=== PATIENT | male | born 1935 | race Caucasian/White ===

== ENCOUNTER 2016-05-11 19:36 | Inpatient (IN) | payer OTHER ==
[2016-05-11] MEDS ORDERED: SODIUM CHLORIDE 0.9% 10 ML FLUSH FLUSH PRN (19:39)
[2016-05-11] MEDS ORDERED: NS 500 ML IV ONE (19:40)
--- NOTE | 2016-05-11 19:42 | EDPRACDOC ---
- General Information Information Source: Work Station Support Specialist Mode of Arrival: Ambulance - History of Present Illness Onset: 2 days HPI: EMS reports fever, yellow productive cough, diarrhea x 2 days. Pt is non verbal with hx dementia. Symptoms: Reports: Cough, Fever, Other (diarrhea) <Kristi Peck - Last Filed: 05/11/16 22:03> <Angel LuisJames - Last Filed: 05/11/16 22:05> - General Information Stated Complaint: FEVER Time Seen by Provider: 05/11/16 19:37 Home Medications: Home Medications Aspirin [Aspirin EC] 81 mg PO HS 05/14/14 Carbidopa/Levodopa [Sinemet 25/100] 1 tab PO .5XDAILY 05/14/14 Cholecalciferol (Vitamin D3) [Vitamin D3 (cholecalciferol)] 2,000 unit PO BID Donepezil HCl [Aricept] 10 mg PO QAM 05/14/14 Lactobac Cmb #3/Fos/Pantethine [Probiotic & Acidophilus Cap] 1 cap PO QAM Levothyroxine [Synthroid, Levoxyl] 75 mcg PO QAM 05/14/14 Losartan Potassium [Cozaar] 25 mg PO QAM 05/14/14 Sertraline HCl [Zoloft] 50 mg PO QAM 05/14/14 Travoprost (Benzalkonium) [Travatan 0.004% Eye Drop] 1 drop OU 05/14/14 Ascorbic Acid [C-1000] 1,000 mg PO BID 10/04/15 Brimonidine 0.2%/Timolol 0.5% [Combigan] 1 drops OU BID 10/04/15 Docusate Sodium [Stool Softener] 100 mg PO HS 10/04/15 Memantine HCl [Namenda] 10 mg PO BID 10/04/15 Pioglitazone HCl [Actos] 45 mg PO QAM 10/04/15 Calcium Carbonate [Calcium] 1,200 mg PO DAILY 05/11/16 Fluticasone Propionate [Flonase] 1 - 2 spray AMELIA DAILY 05/11/16 Glimepiride [Amaryl] 2 mg PO DAILY 05/11/16 Magnesium 600 mg PO DAILY 05/11/16 Mineral Oil/Petrolatum,White [Refresh Lacri-Lube Ointment] 1 applic OU BID 05/11 Pastor/Polymyx B Sulf/Dexameth [Weedxr-Amxtu-Rdvvdrn Eye Ointm] 1 applic OU TID 02/15 Allergies/Adverse Reactions: Allergies Allergy/AdvReac Type Severity Reaction Status Date / Time ANESTHETICS Allergy See Uncoded 10/04/15 18:06 Comments ED Past Medical History - History Reviewed Yes Nurses notes reviewed and agree except as marked - Patient Medical History Neurological History: Reports: Cerebrovascular Accident (TIA), DementiaComment Only: Parkinson's (LATER DIAGNOSED WITH LEWY BODY DISEASE &) Cardiac History: Reports: Hypertension, Hypercholesterolemia, Pacemaker Respiratory History: Reports: Pulmonary Embolism GI/ History: Reports: Gastroesophageal Reflux Psychological History: Reports: Anxiety. Denies: Substance Use Disorder Systemic History: Reports: Cancer (Basal cell cancer removed), Diabetes, Hypothyroidism Surgical History: Reports: Other (Multiple surgeries including bilateral rotator cuff.) - Family Medical History Reports: Hypertension, Diabetes (Mother: DM), Cancer (SKIN), Stroke, Cardiac Disorders (Father: at 65 yo of [place]) - Social Medical History Smoking Status: Never smoker Social History: Denies: Substance Use Disorder ETOH: None Substance Abuse: None <Kristi Peck - Last Filed: 05/11/16 22:03> EDM Review of Systems - Review of Systems ROS Unobtainable: Yes Hx Limited due to age/level of understanding of patient Constitutional: Fever Nose: No Symptoms Reported. negative: Congestion, Bleeding, Discharge, Injection, Swelling, Deformity, Ecchymosis, Tender, Abrasion, Laceration Respiratory: Cough Gastrointestinal: Diarrhea Integumentary: No Symptoms Reported. negative: Itching, Rash, Bruising, Wound Allergic/Immunologic: No Symptoms Reported. negative: Hives, Itching Hematologic: No Symptoms Reported. negative: Lymphadenopathy, Easy Bruising, Easy Bleeding <Kristi Peck - Last Filed: 05/11/16 22:03> - Physical Exam Constitutional: Alert Oriented to: Unable to Test Last recorded Vital Signs: Oxygen Pulse Oxygen Saturation O2 Device Oxygen Flow Rate Fraction of Inspired Oxygen ( FIO2) - HEENT Head: Normal ( normocephalic) Eye Exam: Normal (PERRL, EOMI, Sclera white) Neck: Normal (FROM, trachea at midline) - Respiratory/Cardiovascular Respiratory: Rales Cardiovascular: Normal (RRR without murmur, gallop or rub) - GI Auscultation: Normal (NABS) Palpation: Normal (Soft,No rebound or guarding, non distended) Tenderness: Non tender - Musculoskeletal Back: Normal (Non-Tender) Extremities: Normal (Normal tone, Pulses 2+ No cyanosis or edema, FROM) - Integumentary Skin: Normal, Warm, Dry Lymphatics: Normal (no adenopathy) - Neurologic Memory Impaired: Unable to Test Motor Function: Unable to Test <Kristi Peck - Last Filed: 05/11/16 22:03> - Physical Exam Last recorded Vital Signs: Last Vital Signs Temp 101.8 F H 05/11/16 19:37 Pulse 78 05/11/16 21:50 Resp 18 05/11/16 21:50 BP 118/60 05/11/16 21:50 Pulse Ox 92 05/11/16 21:50 Oxygen Pulse Oxygen Saturation 92 O2 Device Room Air Oxygen Flow Rate Fraction of Inspired Oxygen ( FIO2) <James Hein - Last Filed: 05/11/16 22:05> - Differential Diagnosis Bronchitis, Influenza, Pneumonia, Sepsis, UTI, Viral Syndrome - Results 05/11/16 20:28 05/11/16 20:28 - EKG EKG #1 EKG Time: 19:47 Rate: bpm: 72 [place]: Normal Rhythm: NSR Block: None ST: Nonsp Comparison: 05/14/14 - Diagnostic Imaging Chest Image interpreted by: Radiologist IMPRESSION: 1. Suspect left lower lobe pneumonia. <Kristi Peck - Last Filed: 05/11/16 22:03> - Results 05/11/16 20:28 05/11/16 20:28 WBC 12.7 xk/uL (3.8-10.8) H 05/11/16 20:28 RBC 3.34 xM/uL (4.70-6.10) L 05/11/16 20:28 Hgb 10.9 g/dL (14.0-18.0) L 05/11/16 20:28 Hct 32.5 % (42-52) L 05/11/16 20:28 MCV 97 fL (80-94) H 05/11/16 20:28 MCH 32.6 pg (27-32) H 05/11/16 20:28 MCHC 33.5 g/dl (33-36) 05/11/16 20: RDW 12.9 % (11.5-14.5) 05/11/16 20: Plt Count 301 xk/uL (130-400) 05/11/16 20: MPV 9.1 fL (7.4-10.4) 05/11/16 20: Neut % (Auto) 79.0 % (45-76) H 05/11/16 20: Lymph % (Auto) 11.6 % (17-44) L 05/11/16 20: Morrill % (Auto) 8.7 % (3-10) 05/11/16: Eos % (Auto) 0.2 % (0-5) 05/11/16: Baso % (Auto) 0.5 % (0-2) 05/11/16 20: Absolute Neuts (auto) 10.03 xk/uL (1.7-8.2) H 05/11/16 20: Absolute Lymphs (auto) 1.40 xk/uL (0.65-4.75) 05/11/16 20: PT 10.6 SEC (9.2-11.2) 05/11/16: INR 1.0 05/11/16 20: APTT 25.3 SEC (22-35) 05/11/16 20: Puncture Site Left radial 05/11/16: pH 7.330 pH UNITS (7.35-7.45) L 05/11/16: pCO2 48.0 mmHg (35-45) H 05/11/16: pO2 40.0 mmHg (80-100) L* 05/11/16: HCO3 25.3 MMOL/L (22-26) 05/11/16: Total CO2 26.8 MMOL/L (23-27) 05/11/16: Base Excess -1.1 (+/- 2) 05/11/16: FiO2 % .21 05/11/16 21:17 Tidal Volume ML 05/11/16 21: Specimen Drawn By Palro 05/11/16 21: Sodium 135 mEq/L (137-146) L 05/11/16 20: Potassium 4.1 mEq/L (3.5-5.1) 05/11/16 20: Chloride 99 mEq/L (98-107) 05/11/16 20: Carbon Dioxide 27 mMOL/L (22-33) 05/11/16 20: Anion Gap 13 mEq/L (8-16) 05/11/16 20: BUN 24 MG/DL (9-20) H 05/11/16 20: Creatinine 0.70 MG/DL (0.66-1.25) 05/11/16 20: Estimated GFR (MDRD) > 60 mL/min (>=60) 05/11/16: Glucose 157 MG/DL (70-99) H 05/11/16: Calculated Osmolality 267 MOs/Kg (270-290) L 05/11/16: Lactic Acid 1.2 mEq/L (0.7-2.1) 05/11/16: Calcium 9.0 MG/DL (8.4-10.2) 05/11/16: Corrected Calcium 9.3 MG/DL (8.4-10.2) 05/11/16 20: Total Bilirubin 0.5 MG/DL (0.2-1.3) 05/11/16 20: AST 31 IU/L (17-59) 05/11/16 20: ALT 21 IU/L (21-72) 05/11/16 20: Alkaline Phosphatase 73 IU/L (50-160) 05/11/16: Creatine Kinase 43 IU/L (55-170) L 05/11/16 20: Troponin I < 0.01 ng/mL (<.04) 05/11/16 20: Fhw-H-Vquenrunyfj Pept 1680 pg/mL (0-1800) 05/11/16 20: Total Protein 7.0 G/DL (6.3-8.2) 05/11/16 20: Albumin 3.7 G/DL (3.5-5.0) 05/11/16 20: Urine Color Yellow 05/11/16 21:22 Urine Clarity Sl cldy 05/11/16 21: Urine pH 5.0 (5.0-8.0) 05/11/16 21: Ur Specific [place] 1.030 (1.003-1.035) 05/11/16 21:22 Urine Protein 1+ (NEG/TRACE) H 05/11/16 21:22 Urine Glucose (UA) Neg (NEGATIVE) 05/11/16 21:22 Urine Ketones 1+ (NEGATIVE) H 05/11/16 21:22 Urine Occult Blood Neg (NEG/TRACE) 05/11/16 21:22 Urine Nitrite Neg (NEGATIVE) 05/11/16 21: Urine Bilirubin Neg (NEGATIVE) 05/11/16 21:22 Urine Urobilinogen <2.0 MG/DL (0-1) 05/11/16 21: Ur Leukocyte Esterase Neg (NEGATIVE) 05/11/16 21: Urine RBC 5-10 (0-2) H 05/11/16 21: Urine WBC 2-5 (0-2) H 05/11/16 21:22 Ur Epithelial Cells 2+ 05/11/16 21: Urine Bacteria Few (NEG/FEW) 05/11/16 21: Urine Mucus Mod (NEG/OCC) H 05/11/16 21: Microbiology 05/11/16 20:44 Influenza Type A Antigen Screen - Final Nasal Washing/Aspirate Or Swab NEGATIVE Please note: A NEGATIVE result does not exclude an influenza virus infection. It is a presumptive result and, if required, confirmation should be done using either a virus culture or an FDA-cleared influenza A&B molecular assay. ("NORMAL" value = "NEGATIVE".) Influenza Type B Antigen Screen - Final NEGATIVE Please note: A NEGATIVE result does not exclude an influenza virus infection. It is a presumptive result and, if required, confirmation should be done using either a virus culture or an FDA-cleared influenza A&B molecular assay. ("NORMAL" value = "NEGATIVE".) Lab Results 05/11/16 05/11/16 05/11/16 21:22 21:17 20:28 WBC RBC Hgb Hct MCV MCH MCHC RDW Plt Count MPV Neut % (Auto) Lymph % (Auto) [place] % (Auto) Eos % (Auto) Baso % (Auto) Absolute Neuts (auto) Absolute Lymphs (auto) PT 10.6 INR 1.0 APTT 25.3 Puncture Site Left radial pH 7.330 L pCO2 48.0 H pO2 40.0 L* HCO3 25.3 Total CO2 26.8 Base Excess -1.1 FiO2 % .21 Tidal Volume Specimen Drawn By Palro Sodium Potassium Chloride Carbon Dioxide Anion Gap BUN Creatinine Estimated GFR (MDRD) Glucose Calculated Osmolality Lactic Acid Calcium Corrected Calcium Total Bilirubin AST ALT Alkaline Phosphatase Creatine Kinase Troponin I Dvv-A-Nuoohgafwyj Pept Total Protein Albumin Urine Color Yellow Urine Clarity Sl cldy Urine pH 5.0 Ur Specific [place] 1.030 Urine Protein 1+ H Urine Glucose (UA) Neg Urine Ketones 1+ H Urine Occult Blood Neg Urine Nitrite Neg Urine Bilirubin Neg Urine Urobilinogen <2.0 Ur Leukocyte Esterase Neg Urine RBC 5-10 H Urine WBC 2-5 H Ur Epithelial Cells 2+ Urine Bacteria Few Urine Mucus Mod H 05/11/16 05/11/16 05/11/16 20:28 20:28 20:28 WBC 12.7 H RBC 3.34 L Hgb 10.9 L Hct 32.5 L MCV 97 H MCH 32.6 H MCHC 33.5 RDW 12.9 Plt Count 301 MPV 9.1 Neut % (Auto) 79.0 H Lymph % (Auto) 11.6 L [place] % (Auto) 8.7 Eos % (Auto) 0.2 Baso % (Auto) 0.5 Absolute Neuts (auto) 10.03 H Absolute Lymphs (auto) 1.40 PT INR APTT Puncture Site pH pCO2 pO2 HCO3 Total CO2 Base Excess FiO2 % Tidal Volume Specimen Drawn By Sodium 135 L Potassium 4.1 Chloride 99 Carbon Dioxide 27 Anion Gap 13 BUN 24 H Creatinine 0.70 Estimated GFR (MDRD) > 60 Glucose 157 H Calculated Osmolality 267 L Lactic Acid 1.2 Calcium 9.0 Corrected Calcium 9.3 Total Bilirubin 0.5 AST 31 ALT 21 Alkaline Phosphatase 73 Creatine Kinase 43 L Troponin I < 0.01 Fhm-S-Qrvfbhluehi Pept 1680 Total Protein 7.0 Albumin 3.7 Urine Color Urine Clarity Urine pH Ur Specific [place] Urine Protein Urine Glucose (UA) Urine Ketones Urine Occult Blood Urine Nitrite Urine Bilirubin Urine Urobilinogen Ur Leukocyte Esterase Urine RBC Urine WBC Ur Epithelial Cells Urine Bacteria Urine Mucus <James Hein - Last Filed: 05/11/16 22:05> - Departure Disposition: Admit IP To This Hospital Education/Counseling Given To: Family Member Education/Counseling Given Regarding: Diagnosis, Treatment <Paula Peckyusef Staton - Last Filed: 05/11/16 22:03> - Departure Yes I personally saw and evaluated the patient. Decision to Admit Time: 22:05 Decision to admit date: 05/11/16 Decision to admit: from ED - Physician Consulted Hospitalist Time Called: 22:05 Provider Called: Tacho Reis Time [employer] Returned Call: 22:05 <James Hein - Last Filed: 05/11/16 22:05> - Departure Condition: Stable Final Diagnosis: Hypoxia LLL pneumonia Qualifiers: Pneumonia type: due to unspecified organism Qualified Code(s): J18.1 - Lobar pneumonia, unspecified organism Referrals: David Medina II, MD [Primary Care Provider] - One Week
[2016-05-11] MEDS ORDERED: ACETAMINOPHEN 325 MG/TAB TABLET PO ONE (19:47)
--- NOTE | 2016-05-11 20:26 | DIRPT ---
CLINICAL DATA: Sepsis. EXAM: PORTABLE CHEST 1 VIEW COMPARISON: 02/11/2015 FINDINGS: There is a left chest wall pacer device with lead in the right atrial appendage and right ventricle. Normal heart size. There is aortic atherosclerosis identified. There is a airspace opacity within the left midlung and left base worrisome for pneumonia. IMPRESSION: 1. Suspect left lower lobe pneumonia. Electronically Signed By: Surekha Ruiz M.D. On: 05/11/2016 20:24
[2016-05-11 20:48] LABS: AUTOMATED BASOPHIL 0.5 % (0-2); AUTOMATED EOSINOPHIL 0.2 % (0-5); AUTOMATED LYMPH 11.6 % (17-44); AUTOMATED MONOCYTE 8.7 % (3-10); MPV 9.1 fL (7.4-10.4)
[2016-05-11 20:56] LABS: PARTIAL THROMB. TIME 25.3 SEC (22-35)
[2016-05-11 21:08] LABS: BLOOD UREA NITROGEN 24 MG/DL (9-20); CALC CORRECTED 9.3 MG/DL (8.4-10.2); CALCULATED OSMOLALITY 267 MOs/Kg (270-290); CHLORIDE 99 mEq/L (98-107); CPK TOTAL WITH POSSIBLE MB 43 IU/L (55-170); GLUCOSE 157 MG/DL (70-99); SODIUM LEVEL 135 mEq/L (137-146)
[2016-05-11 21:49] LABS: LEUKOCYTES/URINE NEG (NEGATIVE); NITRITE/URINE NEG (NEGATIVE); URINE OCCULT BLOOD NEG (NEG/TRACE)
[2016-05-11 21:59] LABS: ALLEN'S TEST PASS
[2016-05-11] MEDS ORDERED: CEFTRIAXONE 1 GM in D5W 100 ML IV ONE (21:59)
[2016-05-11] MEDS ORDERED: AZITHROMYCIN 250 MG TAB PO ONE (21:59)
[2016-05-11 22:00] LABS: ABG Draw Site Left Radial
[2016-05-11 22:01] LABS: BEb -1.1 (+/- 2); TCO2 26.8 MMOL/L (23-27)
[2016-05-11] MEDS ORDERED: AZITHROMYCIN 500 MG in D5W 250 ML IV ONE (22:03)
--- NOTE | 2016-05-11 22:24 | HISTPHYS ---
- Chief Complaint not feeling well, shortness of breath - History of Present Illness PRIMARY CARE PROVIDER: Adan HPI: The patient is an 80 yo man who has Lewy Body dementia who usually has stiffness rather than tremors, who started to have some shaking yesterday, and presents today with shortness of breath. The patient is currently not speaking and cannot give any history, so his provides the history. Patient is coughing frequently with eating. Has trouble swallowing at baseline. This morning was unable to get a liquid drink down and was coughing it up. Starting last night he was chatty (very unlike him) but saying bizarre things. Hallucination with seeing a goat at the window. He became progressively more weak today, and can barely walk now. He couldn't make his feet move. Coughing more. Couldn't feed himself. Fever 101.6 this evening. Did have a fever low grade of 100 about 2 nights ago. Onset: First symptoms a few nights ago. Much worse today. Duration: intermittent at first, now constant. Location: generalized. Character: can't get a good breath. Alleviated by: Nothing. Exacerbated by: Nothing. Associated Symptoms: Lost 10 lbs in last few months. Hallucinations. Worsening constipation. Passed out and started shaking all over about 4 days ago but recovered to his usual state. Treatments: none at home except usual medications. Starting to have hallucinations with 5 doses of sinemet per day, so decreased to 4 times per day. Recently decreased to 3 times per day. - Medical History Cardiac History: Reports: Hypertension (usually not hypertensive), Hypercholesterolemia, Pacemaker Respiratory History: Reports: Pulmonary Embolism GI/ History: Reports: Gastroesophageal Reflux Systemic History: Reports: Cancer (Basal cell cancer removed), Diabetes (Type 2 , on insulin), Hypothyroidism, Other (History of hyponatremia.) Neurological History: Reports: Cerebrovascular Accident (TIA), Dementia (LEWY BODY DEMENTIA)Comment Only: Parkinson's (LATER DIAGNOSED WITH LEWY BODY DISEASE) Psychological History: Reports: Anxiety. Denies: Substance Use Disorder - Surgical History Reports: Other (Multiple surgeries including bilateral rotator cuff.) - Medictions/Allergies Allergies ANESTHETICS Allergy (Uncoded 10/04/15 18:06) See Comments PT MED LIST STATES PT CODED. Current Medication List: Reviewed Home Medications Aspirin [Aspirin EC] 81 mg PO HS 05/14/14 Carbidopa/Levodopa [Sinemet 25/100] 1 tab PO .5XDAILY 05/14/14 Cholecalciferol (Vitamin D3) [Vitamin D3 (cholecalciferol)] 2,000 unit PO BID Donepezil HCl [Aricept] 10 mg PO QAM 05/14/14 Lactobac Cmb #3/Fos/Pantethine [Probiotic & Acidophilus Cap] 1 cap PO QAM Levothyroxine [Synthroid, Levoxyl] 75 mcg PO QAM 05/14/14 Losartan Potassium [Cozaar] 25 mg PO QAM 05/14/14 Sertraline HCl [Zoloft] 50 mg PO QAM 05/14/14 Travoprost (Benzalkonium) [Travatan 0.004% Eye Drop] 1 drop OU HS 05/14/14 Ascorbic Acid [C-1000] 1,000 mg PO BID 10/04/15 Brimonidine 0.2%/Timolol 0.5% [Combigan] 1 drops OU BID 10/04/15 Docusate Sodium [Stool Softener] 100 mg PO HS 10/04/15 Memantine HCl [Namenda] 10 mg PO BID 10/04/15 Pioglitazone HCl [Actos] 45 mg PO QAM 10/04/15 Calcium Carbonate [Calcium] 1,200 mg PO DAILY 05/11/16 Fluticasone Propionate [Flonase] 1 - 2 spray AMELIA DAILY 05/11/16 Glimepiride [Amaryl] 2 mg PO DAILY 05/11/16 Magnesium 600 mg PO DAILY 05/11/16 Mineral Oil/Petrolatum,White [Refresh Lacri-Lube Ointment] 1 applic OU BID 05/11 Pastor/Polymyx B Sulf/Dexameth [Okeoxl-Rcskm-Ktgxaou Eye Ointm] 1 applic OU TID 02/15 - Family History Reports: Hypertension, Diabetes (Mother and 5 siblings: DM), Cancer (SKIN), Stroke (Mother), Cardiac Disorders (Father: at 65 yo of [place]. Mother: [place] - Social History Lives: with Spouse Smoking Status: Never smoker Social History: Denies: Alcohol Use, Substance Use Disorder Recently moved to the area from [facility]. - Review of Systems Yes Review of systems cannot be obtained due to the patient's medical condition - Physical Exam Vital Signs: Initial Vitals Temperature 101.8 F H 05/11/16 19:37 Pulse Rate 75 05/11/16 19:37 Respiratory Rate 18 05/11/16 19:37 Blood Pressure 159/58 L 05/11/16 19:37 Pulse Oxygen Saturation 94 05/11/16 19:37 Vital Signs - 24 hr 05/11/16 05/11/16 05/11/16 19:37 21:50 22:32 Temperature 101.8 F H Pulse Rate 75 78 88 Respiratory 18 18 Rate Blood Pressure 159/58 L 118/60 132/83 Pulse Oxygen 94 92 98 Saturation 05/11/16 05/11/16 23:01 23:32 Temperature 98.3 F 97.8 F Pulse Rate 99 121 H Respiratory 24 22 Rate Blood Pressure 176/96 103/71 Pulse Oxygen 100 99 Saturation Weight: 57.8 kg Height: 5 feet 8 inches BMI: 19.4 - Other Exam Other Exam Findings: GENERAL: Ill-appearing, thin, in acute distress. HEENT: Normocephalic, atraumatic; pupils equal and round. Nares patent, without discharge or bleeding. No oropharyngeal lesions or erythema. Mucous membranes are dry. NECK: is supple, no masses, trachea midline. RESPIRATORY: Clear to auscultation bilaterally. Chest wall movements are symmetric. Tachypnea and intermittent use of accessory muscles to breathe. Rhonchi. No rales. CARDIOVASCULAR: Normal S1, S2. Murmur 2/6 systolic. No rubs, or gallops. PMI non -displaced. Carotids: no carotid bruits. Mild tachycardia. DP pulses 2+ bilaterally. GI: soft, nontender, non-distended, normal active bowel sounds. No hepatosplenomegaly. INTEGUMENT: Clean, dry, and intact. No rashes. MUSCULOSKELETAL: No cyanosis. No clubbing. Edema: none bilaterally. NEUROLOGICAL: Cranial nerves 2-12 grossly intact, as best can be determined in this patient who is not following commands. Reflexes: 2+ bilaterally. Babinski: toes downgoing bilaterally. Further neurologic exam could not be performed due to the medical condition of the patient. PSYCHIATRIC: Not oriented. Flat affect. LYMPHATIC: No cervical lymphadenopathy. No supraclavicular lymphadenopathy. - Lab Results Laboratory Results - last 24 hr 05/11/16 05/11/16 05/11/16 20:28 20:28 20:28 WBC 12.7 H RBC 3.34 L Hgb 10.9 L Hct 32.5 L MCV 97 H MCH 32.6 H MCHC 33.5 RDW 12.9 Plt Count 301 MPV 9.1 Neut % (Auto) 79.0 H Lymph % (Auto) 11.6 L [place] % (Auto) 8.7 Eos % (Auto) 0.2 Baso % (Auto) 0.5 Absolute Neuts (auto) 10.03 H Absolute Lymphs (auto) 1.40 PT INR APTT Puncture Site pH pCO2 pO2 HCO3 Total CO2 Base Excess FiO2 % Tidal Volume Specimen Drawn By Sodium 135 L Potassium 4.1 Chloride 99 Carbon Dioxide 27 Anion Gap 13 BUN 24 H Creatinine 0.70 Estimated GFR (MDRD) > 60 Glucose 157 H Calculated Osmolality 267 L Lactic Acid 1.2 Calcium 9.0 Corrected Calcium 9.3 Total Bilirubin 0.5 AST 31 ALT 21 Alkaline Phosphatase 73 Creatine Kinase 43 L Troponin I < 0.01 Hcy-Q-Vmcmceziamw Pept 1680 Total Protein 7.0 Albumin 3.7 Urine Color Urine Clarity Urine pH Ur Specific [place] Urine Protein Urine Glucose (UA) Urine Ketones Urine Occult Blood Urine Nitrite Urine Bilirubin Urine Urobilinogen Ur Leukocyte Esterase Urine RBC Urine WBC Ur Epithelial Cells Urine Bacteria Urine Mucus 05/11/16 05/11/16 05/11/16 20:28 21:17 21:22 WBC RBC Hgb Hct MCV MCH MCHC RDW Plt Count MPV Neut % (Auto) Lymph % (Auto) [place] % (Auto) Eos % (Auto) Baso % (Auto) Absolute Neuts (auto) Absolute Lymphs (auto) PT 10.6 INR 1.0 APTT 25.3 Puncture Site Left radial pH 7.330 L pCO2 48.0 H pO2 40.0 L* HCO3 25.3 Total CO2 26.8 Base Excess -1.1 FiO2 % .21 Tidal Volume Specimen Drawn By Palro Sodium Potassium Chloride Carbon Dioxide Anion Gap BUN Creatinine Estimated GFR (MDRD) Glucose Calculated Osmolality Lactic Acid Calcium Corrected Calcium Total Bilirubin AST ALT Alkaline Phosphatase Creatine Kinase Troponin I Yfa-N-Yellxylkkhw Pept Total Protein Albumin Urine Color Yellow Urine Clarity Sl cldy Urine pH 5.0 Ur Specific [place] 1.030 Urine Protein 1+ H Urine Glucose (UA) Neg Urine Ketones 1+ H Urine Occult Blood Neg Urine Nitrite Neg Urine Bilirubin Neg Urine Urobilinogen <2.0 Ur Leukocyte Esterase Neg Urine RBC 5-10 H Urine WBC 2-5 H Ur Epithelial Cells 2+ Urine Bacteria Few Urine Mucus Mod H - Diagnostic Findings DIAGNOSTIC DATA: EK bpm. Normal sinus rhythm. Incomplete right bundle branch block. Reviewed EKG personally. IMAGING: Chest x-ray, viewed personally: EXAM: PORTABLE CHEST 1 VIEW COMPARISON: 02/11/2015 FINDINGS: There is a left chest wall pacer device with lead in the right atrial appendage and right ventricle. Normal heart size. There is aortic atherosclerosis identified. There is a airspace opacity within the left midlung and left base worrisome for pneumonia. IMPRESSION: 1. Suspect left lower lobe pneumonia. - Assessment (1) Aspiration pneumonia J69.0 - PNEUMONITIS DUE TO INHALATION OF FOOD AND VOMIT Acute Present on Admission: Yes Patient with worsening dysphagia. Pneumonia is most likely due to aspiration. Plan: Cultures ordered. IV Zosyn and IV levaquin. Continuous oxygen support. NPO until speech evaluation. (2) Acute respiratory failure with hypoxia J96.01 - ACUTE RESPIRATORY FAILURE WITH HYPOXIA Acute Present on Admission: Yes Patient has dyspnea and is not improving. Patient's PO2 is low. Plan: Place patient on oxygen by Venti Mask 40% and increase as needed. Monitor oxygen saturation levels and keep O2 sats greater than 92%. (3) Sepsis A41.9 - SEPSIS, UNSPECIFIED ORGANISM Acute Present on Admission: Yes Present on admission, but apparent after admission order. Criteria: Temp 101.8, pulse 121. Source: pneumonia. Plan: Sepsis order set. IV antibiotics. IV fluids to provide volume. Monitor for signs of volume depletion, monitor blood pressure carefully. If still hypotensive with IV fluids consider pressors. Close monitoring. Telemetry. IVF: initial IVF 30 mL/kg x 1, then 250 mL/hr x 1 L, then maintenance IVF. (4) Metabolic encephalopathy G93.41 - METABOLIC ENCEPHALOPATHY Acute Present on Admission: Yes Likely due to infection, sepsis, along with baseline issues from Lewy body dementia. Plan: NPO until speech therapy evaluation. Neuro checks q 4 hours. Telemetry. Treat infection. (5) Lewy body dementia G31.83 - DEMENTIA WITH LEWY BODIES; F02.80 - DEMENTIA IN OTH DISEASES CLASSD ELSWHR W/O BEHAVRL DISTURB Chronic Present on Admission: Yes Qualifiers: Dementia behavioral disturbance: without behavioral disturbance Qualified Code(s): G31.83 - Dementia with Lewy bodies; F02.80 - Dementia in other diseases classified elsewhere without behavioral disturbance Chronic condition. Parkinsonian with symptoms of stiffness. Recent dose change in medication. Plan: Continue current dosing. May need adjustment. (6) Dysphagia R13.10 - DYSPHAGIA, UNSPECIFIED Acute Present on Admission: Yes Plan: NPO until speech evaluation. (7) Type 2 diabetes mellitus with hyperglycemia E11.65 - TYPE 2 DIABETES MELLITUS WITH HYPERGLYCEMIA Acute Present on Admission: Yes Plan: Hold oral diabetes medications. Check fingerstick blood sugars q ac and hs. Sliding scale insulin. Ordered A1c and urine microalbumin. - Plan In summary, this patient is acutely and critically ill. The patient requires treatment of vital organ failure and measures to prevent further life- threatening deterioration of condition. I have spent 60 min in the critical care of this patient. Case Care Discussed with: Patient, Family, Nursing Staff Total Time: 60 min Critical Care: Yes Code: 291 - Focused CV Perfusion Exam Date exam occurred: 05/11/16 Time of Exam: 22:30 Vital Signs: Last Vital Signs Temp 101.8 F H 05/11/16 19:37 Pulse 78 05/11/16 21:50 Resp 18 05/11/16 21:50 BP 118/60 05/11/16 21:50 Pulse Ox 92 05/11/16 21:50 Respiratory: Chest non-tender, Respiratory distress, Rhonchi. negative: Rales Cardiovascular/Chest: Normal (Normal S1 and S2), Tachycardia, Systolic murmur Capillary Refill: Immediate Peripheral pulses: Full: Radial (R), Radial (L), Dorsalis pedis (R), Dorsalis pedis (L), Posterior tibialis (R), Posterior tibialis (L) Skin Color: Pale. negative: Erythema, Dusky Skin Turgor: <3 Seconds
[2016-05-12] MEDS ORDERED: Vaccine Screening Complete SCH (01:00)
[2016-05-12] MEDS: PIPERACILLIN AND TAZOBACTAM 4.5 GM in D5W 100 ML IV SCH ×4 (01:29→18:05)
[2016-05-12] MEDS ORDERED: SIMETHICONE 80 MG TAB PO PRN (02:06)
[2016-05-12] MEDS ORDERED: ACETAMINOPHEN 325 MG SUPP PR PRN (02:06)
[2016-05-12] MEDS ORDERED: TEMAZEPAM 15 MG CAP PO PRN (02:06)
[2016-05-12] MEDS ORDERED: BISACODYL 5 MG TAB PO PRN (02:06)
[2016-05-12] MEDS ORDERED: SENNA CONCENTRATE TAB PO PRN (02:06)
[2016-05-12] MEDS ORDERED: ONDANSETRON HCL 4 MG/2 ML VIAL IV PRN (02:06)
[2016-05-12] MEDS ORDERED: GLUCOSE (ORAL GEL) 15 GM TUBE PO PRN (02:06)
[2016-05-12] MEDS: Levofloxacin 750 mg/150 ml D5W 750 MG/150 ML RTU IV SCH (02:06)
[2016-05-12] MEDS ORDERED: DEXTROSE 25 GM/50 ML PFS IV PRN (02:06)
[2016-05-12] MEDS ORDERED: GUAIFEN 100 MG-DEXTROMETH 10 MG PER 5 ML PO PRN (02:06)
[2016-05-12] MEDS ORDERED: ACETAMINOPHEN 325 MG/TAB TABLET PO PRN (02:06)
[2016-05-12] MEDS ORDERED: BENZONATATE 100 MG PERLES PO PRN (02:06)
[2016-05-12] MEDS ORDERED: GLUCAGON 1 MG VIAL SQ PRN (02:06)
[2016-05-12] MEDS ORDERED: NS 1,000 ML IV ONE ×2 (02:06→04:08)
[2016-05-12] MEDS ORDERED: PROMETHAZINE 25 MG/ML VIAL IV PRN (02:06)
[2016-05-12] MEDS ORDERED: Pharmacy Order Set Alert SCH (03:00)
[2016-05-12] MEDS: Fluconazole 400 mg in NS 400 MG/200 ML RTU IV SCH (03:54)
[2016-05-12] MEDS ORDERED: DEXAMETHASONE OU SCH (04:00)
[2016-05-12] MEDS ORDERED: PETROLATUM OPHTHALMIC LUBRICANT 3.5 GM TUBE OU SCH (04:00)
[2016-05-12] MEDS ORDERED: Combigan Ophthalmic Soln 5 ml bottle OU SCH (04:00)
[2016-05-12] MEDS ORDERED: NEOMYCIN OU SCH (04:00)
[2016-05-12] MEDS ORDERED: POLYMYXIN B OU SCH (04:00)
[2016-05-12] MEDS ORDERED: TRAVOPROST 0.004% OPHTH SOLN 2.5 ML BOTTLE OU SCH (04:00)
[2016-05-12] MEDS: CARBIDOPA-LEVODOPA 25-100 TAB PO SCH ×3 (04:56→19:41)
[2016-05-12] MEDS: DEXAMETHASONE OU SCH ×3 (04:57→19:41)
[2016-05-12] MEDS: POLYMYXIN B OU SCH ×3 (04:57→19:41)
[2016-05-12] MEDS: NEOMYCIN OU SCH ×3 (04:57→19:41)
[2016-05-12] MEDS: REGULAR INSULIN 100 UNITS/ML - 3 ML VIAL SQ SCH ×4 (05:51→21:18)
[2016-05-12] MEDS: NS 1,000 ML IV SCH ×2 (06:01→15:20)
[2016-05-12 07:23] LABS: MPV 8.7 fL (7.4-10.4)
[2016-05-12 07:42] LABS: BLOOD UREA NITROGEN 18 MG/DL (9-20); CALCULATED OSMOLALITY 268 MOs/Kg (270-290); CHLORIDE 102 mEq/L (98-107); GLUCOSE 165 MG/DL (70-99); SODIUM LEVEL 136 mEq/L (137-146)
[2016-05-12] MEDS ORDERED: PETROLATUM WHITE OU SCH (09:00)
[2016-05-12] MEDS ORDERED: CHOLECALCIFEROL PO SCH (09:00)
[2016-05-12] MEDS ORDERED: MAGNESIUM 600 MG PO SCH (09:00)
[2016-05-12] MEDS ORDERED: [UNRECOGNIZED DRUG - OTHER] OU SCH (09:00)
[2016-05-12] MEDS ORDERED: MINERAL OIL OU SCH (09:00)
[2016-05-12] MEDS ORDERED: [UNRECOGNIZED DRUG - OTHER] PO SCH (09:00)
[2016-05-12] MEDS: DONEPEZIL HCL 10 MG TAB PO SCH (11:02)
[2016-05-12] MEDS: LOSARTAN POTASSIUM 25 MG TAB PO SCH (11:02)
[2016-05-12] MEDS: MEMANTINE HCL 10 MG TAB PO SCH ×2 (11:02→19:41)
[2016-05-12] MEDS: MAGNESIUM OXIDE 400 MG TAB PO SCH (11:03)
[2016-05-12] MEDS: PROBIOTIC BLEND TAB PO SCH (11:03)
[2016-05-12] MEDS: CHOLECALCIFEROL 1000 UNITS TAB PO SCH (11:03)
[2016-05-12] MEDS: SERTRALINE HCL 50 MG TAB PO SCH (11:03)
[2016-05-12] MEDS: LEVOTHYROXINE 75 MCG (0.075 MG) TAB PO SCH (11:03)
[2016-05-12] MEDS: Combigan Ophthalmic Soln 5 ml bottle OU SCH ×2 (11:26→19:49)
[2016-05-12] MEDS: PETROLATUM OPHTHALMIC LUBRICANT 3.5 GM TUBE OU SCH ×2 (11:27→19:53)
--- NOTE | 2016-05-12 12:27 | GENMEDPROG ---
Chief Complaint: Aspiration pneumonia Subjective Note: Doing well, no acute complaints. Patient is somnolent unresponsive, discussed with patient's at the bedside. - Physical Examination Vital Signs and I&O: Last Vital Signs Temp 97.6 F 05/12/16 04:30 Pulse 104 05/12/16 10:00 Resp 20 05/12/16 10:00 BP 134/69 05/12/16 10:00 Pulse Ox 96 05/12/16 10:00 Oxygen Pulse Oxygen Saturation 96 O2 Device Venturi Mask Oxygen Flow Rate Fraction of Inspired Oxygen ( 40 FIO2) Intake & Output 05/10/16 05/11/16 05/12/16 05/13/16 06:59 06:59 06:59 06:59 Intake Total 2519 435 Balance 2519 435 Patient's weight 57.861 kg 57.861 kg General: Weakness, Fatigue HEENT: EOMI (Sclera white) Neck: Normal Trachea alignment, Normal inspection Lymphatics: Normal (no adenopathy) Respiratory: Rales Cardiovascular: Regular rate, No Gallops,Rubs/Murmurs GI: Normal bowel sounds, Soft, Non tender (non distended) Extremities/Musculoskeletal: Other (Normal Tone). negative: Edema, Cyanosis Psych/Mental Status: Somnolent, Lethargic Lab/DI/Studies Reviewed: Laboratory Tests 05/12/16 05/12/16 05/12/16 07:00 07:00 10:59 WBC 12.4 H Hgb 10.3 L Potassium 4.2 BUN 18 Creatinine 0.60 L POC Capillary Glucose 151 H - Assessment (1) Aspiration pneumonia Acute J69.0 - PNEUMONITIS DUE TO INHALATION OF FOOD AND VOMIT Comment/Plan: Patient with worsening dysphagia. Pneumonia is most likely due to aspiration. Plan: Cultures ordered. IV Zosyn and IV levaquin. Continuous oxygen support. NPO until speech evaluation, which cannot occur until the patient's oxygenation status improves. (2) Acute respiratory failure with hypoxia Acute J96.01 - ACUTE RESPIRATORY FAILURE WITH HYPOXIA Comment/Plan: Patient has dyspnea and is not improving. Patient's PO2 is low. Plan: Place patient on oxygen by Venti Mask 40% and increase as needed. Monitor oxygen saturation levels and keep O2 sats greater than 92%. (3) Dysphagia Acute R13.10 - DYSPHAGIA, UNSPECIFIED Comment/Plan: Plan: NPO until speech evaluation. (4) Metabolic encephalopathy Acute G93.41 - METABOLIC ENCEPHALOPATHY Comment/Plan: Likely due to infection, sepsis, along with baseline issues from Lewy body dementia. Plan: NPO until speech therapy evaluation. Neuro checks q 4 hours. Telemetry. Treat infection. (5) Type 2 diabetes mellitus with hyperglycemia Acute E11.65 - TYPE 2 DIABETES MELLITUS WITH HYPERGLYCEMIA Comment/Plan: Plan: Hold oral diabetes medications. Check fingerstick blood sugars q ac and hs. Sliding scale insulin. Ordered A1c and urine microalbumin. (6) Lewy body dementia Chronic G31.83 - DEMENTIA WITH LEWY BODIES; F02.80 - DEMENTIA IN OTH DISEASES CLASSD ELSWHR W/O BEHAVRL DISTURB Qualifiers: Dementia behavioral disturbance: without behavioral disturbance Qualified Code(s): G31.83 - Dementia with Lewy bodies; F02.80 - Dementia in other diseases classified elsewhere without behavioral disturbance Comment/Plan: Chronic condition. Parkinsonian with symptoms of stiffness. Recent dose change in medication. Plan: Continue current dosing. May need adjustment. - Plan Continue present care, patient is acutely and critically ill with aspiration pneumonitis, dementia and worsening delirium with toxic metabolic encephalopathy. In summary this patient is acutely and critically ill. The patient requires treatment of vital organ failure and measures to prevent further life- threatening deterioration of the above conditions. I personally reviewed and ordered lab testing, as well as imaging. I reviewed old medical records from previous hospitalizations as available, and spent the time mentioned below in critical care of this patient including counseling and coordination of care. Total Time: 40
[2016-05-12] MEDS: ENOXAPARIN 40 MG/0.4 ML PFS SQ SCH (18:04)
[2016-05-12] MEDS: Docusate Sodium 100 MG CAP PO SCH (19:40)
[2016-05-12] MEDS: TRAVOPROST 0.004% OPHTH SOLN 2.5 ML BOTTLE OU SCH (19:49)
[2016-05-12] MEDS ORDERED: TRAVOPROST OU SCH (21:00)
[2016-05-13] MEDS: NS 1,000 ML IV SCH ×3 (00:25→09:02)
[2016-05-13] MEDS: PIPERACILLIN AND TAZOBACTAM 4.5 GM in D5W 100 ML IV SCH ×4 (01:28→18:00)
--- NOTE | 2016-05-13 02:08 | DIRPT ---
CLINICAL DATA: Worsening dyspnea. EXAM: PORTABLE CHEST 1 VIEW COMPARISON: 05/11/2016 FINDINGS: Development of bilateral perihilar opacities from prior exam. Charlie B-lines are noted. The left lung base opacity is again seen. The heart size is normal. Dual lead left-sided pacemaker remains in place. Calcified granuloma in the right upper lobe. No pneumothorax. Right shoulder arthroplasty and severe degenerative change of the left shoulder. IMPRESSION: 1. Development of pulmonary edema with Charlie B-lines. Perihilar opacities are favored to reflect pulmonary edema over development of multifocal pneumonia. 2. The left lung base opacity is again seen, pneumonia versus less likely focal edema. Electronically Signed By: Jessica Blevins M.D. On: 05/13/2016 02:06
[2016-05-13] MEDS: CARBIDOPA-LEVODOPA 25-100 TAB PO SCH ×3 (05:06→17:58)
[2016-05-13] MEDS: NEOMYCIN OU SCH ×3 (05:06→19:49)
[2016-05-13] MEDS: DEXAMETHASONE OU SCH ×3 (05:06→19:49)
[2016-05-13] MEDS: POLYMYXIN B OU SCH ×3 (05:06→19:49)
[2016-05-13] MEDS: REGULAR INSULIN 100 UNITS/ML - 3 ML VIAL SQ SCH ×4 (05:39→21:04)
[2016-05-13 07:07] LABS: MPV 8.9 fL (7.4-10.4)
[2016-05-13 07:32] LABS: BLOOD UREA NITROGEN 14 MG/DL (9-20); CALCIUM 9.1 MG/DL (8.4-10.2); CALCULATED OSMOLALITY 279 MOs/Kg (270-290); CHLORIDE 107 mEq/L (98-107); GLUCOSE 151 MG/DL (70-99); SODIUM LEVEL 143 mEq/L (137-146)
--- NOTE | 2016-05-13 08:02 | GENMEDPROG ---
Chief Complaint: ASPIRATION PNEUMONIA, PARKINSON'S DZ, RESPIRATORY DISTRESS Subjective Note: Patient with respiratory insufficiency, dementia, unable to tolerate PO intake at present due to hypoxia - will hold PO medications. GRADUALLY WORSENING RESPIRATORY DISTRESS DAY PROGRESSED Notes Reviewed: Yes Events from last night noted and discussed with Clinical Staff Current Medication List: Reviewed Currently: Reports: Cough, ARMENDARIZ, SOB - Physical Examination Vital Signs and I&O: Last Vital Signs Temp 98.8 F 05/13/16 04:49 Pulse 74 05/13/16 04:49 Resp 20 05/13/16 04:49 BP 128/77 05/13/16 04:49 Pulse Ox 100 05/13/16 04:49 Oxygen Pulse Oxygen Saturation 100 O2 Device Venturi Mask Oxygen Flow Rate 8 Fraction of Inspired Oxygen ( 40 FIO2) Intake & Output 05/10/16 05/11/16 05/12/16 05/13/16 23:59 23:59 23:59 23:59 Intake Total 600 3356 1560 Balance 600 3356 1560 Patient's weight 57.861 kg 57.861 kg 58.627 kg General: Alert, Moderate distress, Weakness, Fatigue. negative: Oriented x3 HEENT: PERRLA, EOMI (Sclera white), Anicteric Sclera, Mucous membr. moist/pink Neck: Normal Trachea alignment, Normal inspection Lymphatics: Normal (no adenopathy) Respiratory: Accessory Muscle Use, Rales, Retractions, Tachypnea Cardiovascular: Regular rate and rhythm, Normal S1, No Gallops,Rubs/Murmurs, Normal S2. negative: LE Edema GI: Normal bowel sounds, Soft, Non tender (non distended) Extremities/Musculoskeletal: DJD, Other (Normal Tone). negative: Edema, Cyanosis Skin: Warm,Dry and Intact, No breakdown Neurological: Normal speech, Normal tone, Cranial nerves 3-12 NL, Somnolent Psych/Mental Status: Cooperative, Confused, Disoriented, Somnolent, Lethargic - Assessment (1) Acute respiratory failure with hypoxia Acute J96.01 - ACUTE RESPIRATORY FAILURE WITH HYPOXIA Comment/Plan: Patient has dyspnea and is not improving. Patient's PO2 is low. Plan: Place patient on oxygen by Venti Mask 55% and increase as needed. Monitor oxygen saturation levels and keep O2 sats greater than 92%. Will add IV lorazepam and morphine for comfort measures as needed. Patient is doing poorly. Discussed other options w/ , she prefers he be kept comfortable. (2) Aspiration pneumonia Acute J69.0 - PNEUMONITIS DUE TO INHALATION OF FOOD AND VOMIT Qualifiers: Laterality: bilateral Lung location: lower lobe of lung Comment/Plan: Patient with worsening dysphagia. Pneumonia is most likely due to aspiration. Plan: Continue IV Zosyn and IV levaquin. Continuous oxygen support. NPO until speech evaluation, which cannot occur until the patient's oxygenation status improves. (3) Type 2 diabetes mellitus with hyperglycemia Acute E11.65 - TYPE 2 DIABETES MELLITUS WITH HYPERGLYCEMIA Qualifiers: Diabetes mellitus mcc insulin use: without mcc use Qualified Code(s): E11.65 - Type 2 diabetes mellitus with hyperglycemia Comment/Plan: Hold oral diabetes medications. Check fingerstick blood sugars q ac and hs. Sliding scale insulin. Ordered A1c and urine microalbumin. (4) Dementia Acute F03.90 - UNSPECIFIED DEMENTIA WITHOUT BEHAVIORAL DISTURBANCE Qualifiers: Dementia type: Alzheimer's disease Alzheimer's disease onset: unspecified onset Dementia behavioral disturbance: without behavioral disturbance Qualified Code(s): G30.9 - Alzheimer's disease, unspecified; F02.80 - Dementia in other diseases classified elsewhere without behavioral disturbance Comment/Plan: Discussed with patient in details. Continue Aricept, resume Namenda. Change dosing to evening time. Patient was advised that this condition will slowly but progressively worsen. (5) Hypertensive cardiovascular disease or syndrome Chronic I11.9 - HYPERTENSIVE HEART DISEASE WITHOUT HEART FAILURE Qualifiers: Heart failure presence: without heart failure Qualified Code(s): I11.9 - Hypertensive heart disease without heart failure Comment/Plan: Keep SBP above 140. (6) Parkinson disease Chronic G20 - PARKINSON'S DISEASE Comment/Plan: Continue meds.Patient remains at high risk for aspiration. Continue PT/ OT and speech therapy evaluations. (7) Pacemaker Acute Z95.0 - PRESENCE OF CARDIAC PACEMAKER Comment/Plan: Patient does have a pacemaker in place. Will not be able to obtain an MRI. Case Care Discussed with: Patient, Family, Nursing Staff Education/Counseling Given To: Patient, Family Member Education/Counseling Given Regarding: Diagnosis, Treatment, Prognosis Critical Care: Yes Couseling Time (>50% in counseling/coordination): No Code: 291
--- NOTE | 2016-05-13 08:24 | DIRPT ---
CLINICAL DATA: Noisy respirations, confusion EXAM: PORTABLE CHEST 1 VIEW COMPARISON: Portable exam 0806 hours compared to 05/13/2016 FINDINGS: Stable pacemaker leads projecting over RIGHT atrium and RIGHT ventricle. Normal heart size and mediastinal contours. Atherosclerotic calcification aorta. Patchy BILATERAL pulmonary infiltrates in the perihilar and basilar regions with associated Charlie B-lines at the lateral lung bases, question asymmetric pulmonary edema versus infection. Suspect small LEFT pleural effusion. No pneumothorax. Osseous demineralization with note of a RIGHT shoulder prosthesis. IMPRESSION: Persistent asymmetric pulmonary infiltrates in interstitial thickening call question asymmetric pulmonary edema versus infection, little changed. Electronically Signed By: Vicente Turcios M.D. On: 05/13/2016 08:21
[2016-05-13] MEDS: Combigan Ophthalmic Soln 5 ml bottle OU SCH ×2 (08:56→19:50)
[2016-05-13] MEDS: PETROLATUM OPHTHALMIC LUBRICANT 3.5 GM TUBE OU SCH ×2 (08:58→19:50)
[2016-05-13] MEDS: LEVOTHYROXINE 75 MCG (0.075 MG) TAB PO SCH (09:01)
[2016-05-13] MEDS: SERTRALINE HCL 50 MG TAB PO SCH ×2 (09:01→10:54)
[2016-05-13] MEDS: DONEPEZIL HCL 10 MG TAB PO SCH ×2 (09:01→10:54)
[2016-05-13] MEDS: MEMANTINE HCL 10 MG TAB PO SCH ×2 (09:01→17:56)
[2016-05-13] MEDS: LOSARTAN POTASSIUM 25 MG TAB PO SCH ×2 (09:01→10:54)
[2016-05-13] MEDS: CHOLECALCIFEROL 1000 UNITS TAB PO SCH ×2 (10:57→19:49)
[2016-05-13] MEDS: MAGNESIUM OXIDE 400 MG TAB PO SCH (10:58)
[2016-05-13] MEDS: PROBIOTIC BLEND TAB PO SCH (10:59)
[2016-05-13] MEDS ORDERED: LEVOTHYROXINE 100 MCG (0.1 MG) SDV IV SCH (11:00)
[2016-05-13] MEDS ORDERED: ALBUTEROL 0.083% 3 ML NEB NEB ONE (17:39)
[2016-05-13] MEDS ORDERED: Albuterol/Ipratropium Neb 3 ML NEB NEB PRN (17:45)
[2016-05-13] MEDS: ENOXAPARIN 40 MG/0.4 ML PFS SQ SCH (17:56)
[2016-05-13] MEDS: Docusate Sodium 100 MG CAP PO SCH (19:42)
[2016-05-13] MEDS: LORAZEPAM 2 MG/ML VIAL IV PRN ×2 (19:42→21:09)
[2016-05-13] MEDS: MORPHINE 2 MG/ML INJECTION IV PRN ×2 (19:43→21:10)
[2016-05-13] MEDS: TRAVOPROST 0.004% OPHTH SOLN 2.5 ML BOTTLE OU SCH (19:50)
[2016-05-13] MEDS ORDERED: Albuterol/Ipratropium Neb 3 ML NEB NEB SCH (20:00)
[2016-05-14] MEDS: PIPERACILLIN AND TAZOBACTAM 4.5 GM in D5W 100 ML IV SCH ×2 (00:27→05:20)
[2016-05-14] MEDS: Levofloxacin 750 mg/150 ml D5W 750 MG/150 ML RTU IV SCH (01:21)
[2016-05-14] MEDS: NS 1,000 ML IV SCH (01:21)
[2016-05-14] MEDS: NEOMYCIN OU SCH ×2 (02:51→10:59)
[2016-05-14] MEDS: POLYMYXIN B OU SCH ×2 (02:51→10:59)
[2016-05-14] MEDS: CARBIDOPA-LEVODOPA 25-100 TAB PO SCH ×2 (02:51→10:57)
[2016-05-14] MEDS: DEXAMETHASONE OU SCH ×2 (02:51→10:59)
[2016-05-14] MEDS: MEMANTINE HCL 10 MG TAB PO SCH (02:51)
[2016-05-14] MEDS: CHOLECALCIFEROL 1000 UNITS TAB PO SCH (02:52)
[2016-05-14] MEDS: Fluconazole 400 mg in NS 400 MG/200 ML RTU IV SCH (03:37)
[2016-05-14] MEDS: MORPHINE 2 MG/ML INJECTION IV PRN ×12 (03:57→18:48)
[2016-05-14] MEDS: LORAZEPAM 2 MG/ML VIAL IV PRN ×3 (03:57→06:39)
[2016-05-14] MEDS ORDERED: LEVOTHYROXINE 50 MCG (0.05 MG) TAB PO SCH (05:00)
[2016-05-14] MEDS: REGULAR INSULIN 100 UNITS/ML - 3 ML VIAL SQ SCH ×2 (06:42→11:22)
[2016-05-14 07:04] LABS: AUTOMATED BASOPHIL 0.2 % (0-2); AUTOMATED LYMPH 6.2 % (17-44); AUTOMATED MONOCYTE 12.8 % (3-10); AUTOMATED NEUTROPHIL 80.8 % (45-76); MPV 8.3 fL (7.4-10.4)
[2016-05-14 07:19] LABS: BLOOD UREA NITROGEN 14 MG/DL (9-20); CALCIUM 8.6 MG/DL (8.4-10.2); CALCULATED OSMOLALITY 281 MOs/Kg (270-290); CHLORIDE 106 mEq/L (98-107); GLUCOSE 233 MG/DL (70-99); SODIUM LEVEL 142 mEq/L (137-146)
[2016-05-14] MEDS ORDERED: LOSARTAN POTASSIUM 25 MG TAB PO SCH (07:30)
[2016-05-14] MEDS ORDERED: SERTRALINE HCL 50 MG TAB PO SCH (07:30)
[2016-05-14] MEDS: Combigan Ophthalmic Soln 5 ml bottle OU SCH (08:41)
[2016-05-14] MEDS: PETROLATUM OPHTHALMIC LUBRICANT 3.5 GM TUBE OU SCH ×2 (08:41→08:46)
[2016-05-14 10:28] VITALS: BP 137/68; PULSE 70; TEMP 98.8
[2016-05-14] MEDS: PROBIOTIC BLEND TAB PO SCH (10:56)
[2016-05-14] MEDS: MAGNESIUM OXIDE 400 MG TAB PO SCH (10:57)
--- NOTE | 2016-05-14 13:06 | GENMEDPROG ---
Chief Complaint: ASPIRATION PNEUMONIA, ACUTE RESPIRATORY FAILURE, DM-2, TME, FTT Subjective Note: Patient continues to deteriorate. Family has met and requested that he be made comfort care only. Discussed with Adan WALSH also. Notes Reviewed: Yes Events from last night noted and discussed with Clinical Staff Current Medication List: Reviewed Currently: Reports: Cough, ARMENDARIZ, SOB - Physical Examination Vital Signs and I&O: Last Vital Signs Temp 98.8 F 05/14/16 10:00 Pulse 70 05/14/16 10:00 Resp 20 05/14/16 10:00 BP 137/68 05/14/16 10:00 Pulse Ox 98 05/14/16 10:00 Oxygen Pulse Oxygen Saturation 98 O2 Device Non-Rebreather Oxygen Flow Rate 8 Fraction of Inspired Oxygen ( 100 FIO2) Intake & Output 05/11/16 05/12/16 05/13/16 05/14/16 23:59 23:59 23:59 23:59 Intake Total 600 3356 3201 1596 Balance 600 3356 3201 1596 Patient's weight 57.861 kg 57.861 kg 58.627 kg 65.726 kg General: Moderate distress, Weakness, Fatigue. negative: Alert, Oriented x3 HEENT: PERRLA, EOMI (Sclera white), Anicteric Sclera, Mucous membr. moist/pink Neck: Normal Trachea alignment, Normal inspection Lymphatics: Normal (no adenopathy) Respiratory: Accessory Muscle Use, Rales, Retractions, Tachypnea Cardiovascular: Regular rate and rhythm, Normal S1, No Gallops,Rubs/Murmurs, Normal S2. negative: LE Edema GI: Normal bowel sounds, Soft, Non tender (non distended) Extremities/Musculoskeletal: DJD, Other (Normal Tone). negative: Edema, Cyanosis Skin: Warm,Dry and Intact, No breakdown Neurological: Normal tone, Cranial nerves 3-12 NL, Somnolent, Lethargy Psych/Mental Status: Drowsy, Somnolent, Lethargic, Other (obtunded) Lab/DI/Studies Reviewed: Laboratory Tests 05/14/16 05/14/16 05/14/16 06:33 06:50 06:50 WBC 12.1 H Hgb 11.4 L Hct 34.3 L Plt Count 320 Neut % (Auto) 80.8 H Lymph % (Auto) 6.2 L [place] % (Auto) 12.8 H Sodium 142 Potassium 3.3 L Chloride 106 Carbon Dioxide 25 Anion Gap 14 BUN 14 Creatinine 0.60 L Estimated GFR (MDRD) > 60 Glucose 233 H POC Capillary Glucose 224 H Calculated Osmolality 281 Calcium 8.6 Magnesium 1.60 [id number] Pept 14634 H - Assessment (1) Acute respiratory failure with hypoxia Acute J96.01 - ACUTE RESPIRATORY FAILURE WITH HYPOXIA Comment/Plan: Patient has dyspnea and is not improving. Patient's PO2 is low. Family has agreed to put patient on comfort measures only, and stop all onon-essential medications. will change to 4L O2 per NC. Will continue morphine for comfort measures as needed. Patient is doing poorly. Discussed other options w/ , she prefers he be kept comfortable. (2) Aspiration pneumonia Acute J69.0 - PNEUMONITIS DUE TO INHALATION OF FOOD AND VOMIT Qualifiers: Laterality: bilateral Lung location: lower lobe of lung Comment/Plan: Patient with worsening dysphagia. Pneumonia is most likely due to aspiration. Family has requested that antibiotics be discontinued. He has great difficulty swallowing, his dementia is worsening, and aspiration is likely to recur even if he were to recover from this episode. Currently he is unable to eat or drink. They feel continuing antibiotics is only continuing his misery. (3) Type 2 diabetes mellitus with hyperglycemia Acute E11.65 - TYPE 2 DIABETES MELLITUS WITH HYPERGLYCEMIA Qualifiers: Diabetes mellitus intermediate insulin use: without intermediate use Qualified Code(s): E11.65 - Type 2 diabetes mellitus with hyperglycemia Comment/Plan: Hold oral diabetes medications. Stop fingerstick blood sugars. Stop insulin. (4) Dementia Acute F03.90 - UNSPECIFIED DEMENTIA WITHOUT BEHAVIORAL DISTURBANCE Qualifiers: Dementia type: Alzheimer's disease Alzheimer's disease onset: unspecified onset Dementia behavioral disturbance: without behavioral disturbance Qualified Code(s): G30.9 - Alzheimer's disease, unspecified; F02.80 - Dementia in other diseases classified elsewhere without behavioral disturbance Comment/Plan: Discussed with patient in details. Patient with failure to thrive, inability to understand his environment or what is happening to him. She requests to let him a natural . (5) Hypertensive cardiovascular disease or syndrome Chronic I11.9 - HYPERTENSIVE HEART DISEASE WITHOUT HEART FAILURE Qualifiers: Heart failure presence: without heart failure Qualified Code(s): I11.9 - Hypertensive heart disease without heart failure (6) Parkinson disease Chronic G20 - PARKINSON'S DISEASE Comment/Plan: Patient remains at high risk for aspiration. Stop all non-essential medications. (7) Pacemaker Acute Z95.0 - PRESENCE OF CARDIAC PACEMAKER Comment/Plan: Patient does have a pacemaker in place. Will quality audit representative about deactivation. - Plan Change to palliative and comfort care. Delay Hospice consult unless patient is seen to linger more than 24-48 hours. Advance Care Plan/Decision Maker: - she requested that patient not be moved if at all possible. Case Care Discussed with: Family, Nursing Staff Education/Counseling Given To: Family Member Education/Counseling Given Regarding: Diagnosis, Treatment, Prognosis
[2016-05-14 15:48] VITALS: BMI 22.0
[2016-05-14] MEDS ORDERED: DONEPEZIL HCL 10 MG TAB PO SCH (18:00)
[2016-05-15] MEDS ORDERED: Levofloxacin 750 mg/150 ml D5W 750 MG/150 ML RTU IV SCH (02:00)
--- NOTE | 2016-05-15 09:23 | PCM.DCS92 ---
- Final/Secondary Discharge Diagnosis (1) Acute respiratory failure with hypoxia Acute J96.01 - ACUTE RESPIRATORY FAILURE WITH HYPOXIA Present on Admission: Yes Comment: Patient has dyspnea and is not improving. Patient's PO2 is low. Family has agreed to put patient on comfort measures only, and stop all onon-essential medications. will change to 4L O2 per NC. Will continue morphine for comfort measures as needed. Patient is doing poorly. Discussed other options w/ , she prefers he be kept comfortable. (2) Aspiration pneumonia Acute J69.0 - PNEUMONITIS DUE TO INHALATION OF FOOD AND VOMIT Present on Admission: Yes bilateral lower lobe of lung Comment: Patient with worsening dysphagia. Pneumonia is most likely due to aspiration. Family has requested that antibiotics be discontinued. He has great difficulty swallowing, his dementia is worsening, and aspiration is likely to recur even if he were to recover from this episode. Currently he is unable to eat or drink. They feel continuing antibiotics is only continuing his misery. (3) Type 2 diabetes mellitus with hyperglycemia Acute E11.65 - TYPE 2 DIABETES MELLITUS WITH HYPERGLYCEMIA Present on Admission: Yes without manager intermediate use E11.65 - Type 2 diabetes mellitus with hyperglycemia Comment: Hold oral diabetes medications. Stop fingerstick blood sugars. Stop insulin. (4) Dementia Acute F03.90 - UNSPECIFIED DEMENTIA WITHOUT BEHAVIORAL DISTURBANCE Alzheimer's disease unspecified onset without behavioral disturbance G30.9 - Alzheimer's disease, unspecified; F02.80 - Dementia in other diseases classified elsewhere without behavioral disturbance Comment: Discussed with patient in details. Patient with failure to thrive , inability to understand his environment or what is happening to him. She requests to let him a natural . (5) Hypertensive cardiovascular disease or syndrome Chronic I11.9 - HYPERTENSIVE HEART DISEASE WITHOUT HEART FAILURE without heart failure I11.9 - Hypertensive heart disease without heart failure (6) Parkinson disease Chronic G20 - PARKINSON'S DISEASE Comment: Patient remains at high risk for aspiration. Stop all non-essential medications. (7) Pacemaker Acute Z95.0 - PRESENCE OF CARDIAC PACEMAKER Comment: Patient does have a pacemaker in place. Will contact lens assistant about deactivation. Discharge Disposition: Discharge Condition: Stable Fuctional Discharge Status: Other Physician Follow up/Referrals: David Medina II, MD [Primary Care Provider] - Listed Time (Patient .) O2 Device: Nasal Cannula Diet Order: none - DC Summary Notes Hospital Course Note:: Discharge summary on patient named CARLA AGUILLON admitted to [facility] on 05/11/16 by Tacho Reis MD. Date of discharge is [05/14/16]. The patient is an 80 yo man who has Lewy Body dementia who usually has stiffness rather than tremors, who started to have some shaking yesterday, and presents today with shortness of breath. The patient is currently not speaking and cannot give any history, so his provides the history. Patient is coughing frequently with eating. Has trouble swallowing at baseline. This morning was unable to get a liquid drink down and was coughing it up. Starting last night he was chatty (very unlike him) but saying bizarre things. Hallucination with seeing a goat at the window. He became progressively more weak today, and can barely walk now. He couldn't make his feet move. Coughing more. Couldn't feed himself. Fever 101.6 this evening. Did have a fever low grade of 100 about 2 nights ago. His CXR was consistent with bilateral aspiration pneumonia, and he was admitted, and started on IV antibiotics and pulmonary toilet. He has a history of Parkinson's dementia and esophageal dysphagia with a stricture from reflux. He was unable to swallow. Patient had dyspnea and was not improving. After 3 days of poor response to aggressive care, the family has agreed to put patient on comfort measures only, and stop all non-essential medications. His requested the antibiotics be discontinued. He was changed to 4L O2 per NC. He was given morphine for comfort measures as needed. Patient continued doing poorly. Discussed other options w/ , she prefers he be kept comfortable. He at 19:54 pm on May 14, 2016. No resuscitation efforts were made in accordance with the patient and family's wishes. Total Time: 40 min Code: 74492 (>30min.) - Physical Exam Vital Signs: Last Vital Signs Temp 98.8 F 05/14/16 10:00 Pulse 70 05/14/16 10:00 Resp 20 05/14/16 10:00 BP 137/68 05/14/16 10:00 Pulse Ox 98 05/14/16 10:00 Oxygen Pulse Oxygen Saturation 98 O2 Device Nasal Cannula Oxygen Flow Rate 4 Fraction of Inspired Oxygen ( 100 FIO2) Constitutional: Other () Oriented to: Unable to Test - HEENT Head: Normal ( normocephalic) Eye: Pale Conjunctiva Oropharynx: Membranes Dry Nose: No Symptoms Reported. negative: Congestion, Bleeding, Discharge, Injection, Swelling, Deformity, Ecchymosis, Tender, Abrasion, Laceration - Respiratory/Cardiovascular Respiratory: Other (none) Cardiovascular: Other (no heartbeat) - GI Auscultation: Absent Palpation: Normal (Soft,No rebound or guarding, non distended) - Musculoskeletal Back: Normal Extremities: Pedal Pulse (absent), Radial Pulse (absent). negative: Clubbing, Cyanosis - Integumentary Skin: Cool, Dry, Pale Lymphatics: Normal (no adenopathy) - Neurologic Memory Impaired: Unable to Test Motor Function: Unable to Test Cranial Nerve: Unable to Test Cerebellar: Unable to Test
== END 2016-05-14 19:54 | disposition expired | DRG 871 ==
LOC: ED 19:36 → MPS3 22:21
PROVIDERS: ADMIT Internal Medicine; ATTEND Family Medicine
PROC: 039C3ZZ Drainage of Left Radial Artery, Percutaneous Approach (ICD-10-PCS; principal; 2016-05-11)
DX: A41.9 Sepsis, unspecified organism (principal); J69.0 Pneumonitis due to inhalation of food and vomit; J96.01 Acute respiratory failure with hypoxia; G93.41 Metabolic encephalopathy; R13.10 Dysphagia, unspecified; E11.65 Type 2 diabetes mellitus with hyperglycemia; I11.9 Hypertensive heart disease without heart failure; Z51.5 Encounter for palliative care; Z66 Do not resuscitate; G20 Parkinson's disease; G30.9 Alzheimer's disease, unspecified; F02.80 Dementia in other diseases classified elsewhere, unspecified severity, without behavioral disturbance, psychotic disturbance, mood disturbance, and anxiety; G31.83 Neurocognitive disorder with Lewy bodies; Z79.82 Long term (current) use of aspirin; K21.9 Gastro-esophageal reflux disease without esophagitis; Z79.84 Long term (current) use of oral hypoglycemic drugs; Z95.0 Presence of cardiac pacemaker; Z86.711 Personal history of pulmonary embolism; E03.9 Hypothyroidism, unspecified; Z86.73 Personal history of transient ischemic attack (TIA), and cerebral infarction without residual deficits
CPT/HCPCS: 36415; 36600; 71010; 80048; 80053; 81001; 82043; 82550; 82803; 82962; 83036; 83605; 83735; 83880; 84484; 85025; 85027; 85610; 85730; 87040; 87086; 87804; 93005; 94640; 94667; 96361; 96365; 96366; 96372; 98960; 99284; J0456; J0696; J1450; J1650; J1956; J2060; J2270; J2543; J3490; J7060; J7070; J7620